=== PATIENT | male | born 1970 | race Caucasian/White ===

== ENCOUNTER 2020-05-30 14:15 | Emergency (ER) | payer OTHER ==
--- NOTE | 2020-05-30 14:43 | ED ---
General Adult HPI - General Chief complaint: Upper Respiratory Infection Stated complaint: COVID + Time Seen by Provider: 05/30/20 14:29 Source: patient Mode of arrival: ambulatory Limitations: no limitations - History of Present Illness Initial comments: Dictation was produced using [employer] dictation software. please excuse any grammatical, word or spelling errors. This patient was cared for during a federal and state declared state of emergenc y secondary to Covid 19 Chief Complaint: 49-year-old male past medical history of hypertension high cholesterol presents with chest congestion History of Present Illness: Or 9-year-old male he is a known positive Covid patient. He tested +1 week ago. States that his is also positive and currently admitted to the hospital for hypoxic respiratory failure. Patient states that he's been symptomatically for the last 10 days. States his symptoms have been more in his throat area however over the last couple days symptoms, moved down to his upper chest. He does have a nonproductive cough. Does have low-grade temperatures at home. He doesn't feel overwhelmingly dyspneic. He feels fatigued. He decided come to the emergency department just to get checked out. The ROS documented in this emergency department record has been reviewed and confirmed by me. Those systems with pertinent positive or negative responses have been documented in the HPI. All other systems are other negative and/or noncontributory. PHYSICAL EXAM: General Impression: Alert and oriented x3, not in acute distress HEENT: Normocephalic atraumatic, extra-ocular movements intact, pupils equal and reactive to light bilaterally, mucous membranes moist. Cardiovascular: Heart regular rate and rhythm Chest: Able to complete full sentences, no retractions, no tachypnea Abdomen: abdomen soft, non-tender, non-distended, no organomegaly Musculoskeletal: Pulses present and equal in all extremities, no peripheral edema Motor: no focal deficits noted Neurological: CN II-XII grossly intact, no focal motor or sensory deficits noted Skin: Intact with no visualized rashes Psych: Normal affect and mood ED course: 49-year-old male with Covid 19 +1 week ago. He's been symptomatic for 10 days. All signs upon arrival shows heart rate of 107, rest of vital signs within acceptable limits. He does not have any pain complaints. He does feel some congestion in his upper anterior chest. Laboratory evaluation obtained. CBC, coag panel unremarkable. D-dimer 0.67. Metabolic panel is negative. CRP is 35.2. Chest x-ray is nonacute. CT angio of the chest was obtained because of elevated d-dimer. CTA shows multifocal groundglass opacity. Patient observed in emergency department for 2-1/2 hours with no acute events. Patient reevaluated at bedside and is stable for discharge. He is not hypoxic. Patient be discharged. Patient has a pulse oximeter at home a is given return precautions. Patient is agreeable at discharge. EKG interpretation: Ventricular rate 100, normal sinus rhythm,. 162, QRS 96, QTC 451. No AK prolongation, no QTC prolongation, no ST or T-wave changes noted. No old EKG for comparison. Overall, this EKG is unremarkable - Related Data Allergies Allergy/AdvReac Type Severity Reaction Status Date / Time No Known Allergies Allergy Verified 05/30/20 14:22 Review of Systems ROS Statement: Those systems with pertinent positive or pertinent negative responses have been documented in the HPI. ROS Other: All systems not noted in ROS Statement are negative. Past Medical History Past Medical History: Hypertension History of Any Multi-Drug Resistant Organisms: None Reported Past Surgical History: Hernia Repair, Tonsillectomy Additional Past Surgical History / Comment(s): nose surgery Smoking Status: Light tobacco smoker Past Alcohol Use History: None Reported Past Drug Use History: None Reported General Exam Limitations: no limitations Course Vital Signs 05/30/20 05/30/20 14:18 15:30 Temperature 98.9 F Pulse Rate 107 H 93 Respiratory 20 20 Rate Blood Pressure 154/95 124/101 O2 Sat by Pulse 97 96 Oximetry Medical Decision Making - Lab Data Result diagrams: 05/30/20 14:22 05/30/20 14:22 Lab Results 05/30/20 05/30/20 05/30/20 Range/Units 14:22 14:22 14:22 WBC 6.8 (3.8-10.6) k/uL RBC 5.07 (4.30-5.90) m/uL Hgb 15.2 (13.0-17.5) gm/dL Hct 44.6 (39.0-53.0) % MCV 88.0 (80.0-100.0) fL MCH 30.0 (25.0-35.0) pg MCHC 34.2 (31.0-37.0) g/dL RDW 12.8 (11.5-15.5) % Plt Count 222 (150-450) k/uL Neutrophils % 71 % Lymphocytes % 21 % Monocytes % 5 % Eosinophils % 1 % Basophils % 1 % Neutrophils # 4.9 (1.3-7.7) k/uL Lymphocytes # 1.4 (1.0-4.8) k/uL Monocytes # 0.4 (0-1.0) k/uL Eosinophils # 0.1 (0-0.7) k/uL Basophils # 0.1 (0-0.2) k/uL PT 9.6 (9.0-12.0) sec INR 0.9 (<1.2) APTT 22.4 (22.0-30.0) sec D-Dimer 0.67 H (<0.60) mg/L FEU Sodium 135 L (137-145) mmol/L Potassium 3.5 (3.5-5.1) mmol/L Chloride 100 (98-107) mmol/L Carbon Dioxide 24 (22-30) mmol/L Anion Gap 11 mmol/L BUN 16 (9-20) mg/dL Creatinine 0.97 (0.66-1.25) mg/dL Est GFR (CKD-EPI)AfAm >90 (>60 ml/min/1.73 sqM) Est GFR (CKD-EPI)NonAf >90 (>60 ml/min/1.73 sqM) Glucose 132 H (74-99) mg/dL Plasma Lactic Acid Cuong (0.7-2.0) mmol/L Calcium 9.4 (8.4-10.2) mg/dL Magnesium 2.1 (1.6-2.3) mg/dL Total Bilirubin 0.9 (0.2-1.3) mg/dL AST 46 (17-59) U/L ALT 43 (4-49) U/L Alkaline Phosphatase 100 (38-126) U/L Lactate Dehydrogenase 560 (313-618) U/L C-Reactive Protein 35.2 H (<10.0) mg/L Total Protein 7.4 (6.3-8.2) g/dL Albumin 4.4 (3.5-5.0) g/dL 05/30/20 Range/Units 14:22 WBC (3.8-10.6) k/uL RBC (4.30-5.90) m/uL Hgb (13.0-17.5) gm/dL Hct (39.0-53.0) % MCV (80.0-100.0) fL MCH (25.0-35.0) pg MCHC (31.0-37.0) g/dL RDW (11.5-15.5) % Plt Count (150-450) k/uL Neutrophils % % Lymphocytes % % Monocytes % % Eosinophils % % Basophils % % Neutrophils # (1.3-7.7) k/uL Lymphocytes # (1.0-4.8) k/uL Monocytes # (0-1.0) k/uL Eosinophils # (0-0.7) k/uL Basophils # (0-0.2) k/uL PT (9.0-12.0) sec INR (<1.2) APTT (22.0-30.0) sec D-Dimer (<0.60) mg/L FEU Sodium (137-145) mmol/L Potassium (3.5-5.1) mmol/L Chloride (98-107) mmol/L Carbon Dioxide (22-30) mmol/L Anion Gap mmol/L BUN (9-20) mg/dL Creatinine (0.66-1.25) mg/dL Est GFR (CKD-EPI)AfAm (>60 ml/min/1.73 sqM) Est GFR (CKD-EPI)NonAf (>60 ml/min/1.73 sqM) Glucose (74-99) mg/dL Plasma Lactic Acid Cuong 1.3 (0.7-2.0) mmol/L Calcium (8.4-10.2) mg/dL Magnesium (1.6-2.3) mg/dL Total Bilirubin (0.2-1.3) mg/dL AST (17-59) U/L ALT (4-49) U/L Alkaline Phosphatase (38-126) U/L Lactate Dehydrogenase (313-618) U/L C-Reactive Protein (<10.0) mg/L Total Protein (6.3-8.2) g/dL Albumin (3.5-5.0) g/dL Disposition Clinical Impression: COVID-19 Disposition: HOME SELF-CARE Condition: Good Instructions (If sedation given, give patient instructions): Upper Respiratory Infection (ED) Is patient prescribed a controlled substance at d/c from ED?: No Referrals: Abrahan Balderas DO [Primary Care Provider] - 1-2 days Time of Disposition: 16:38
[2020-05-30 15:05] LABS: Basophils # (A) 0.1 k/uL (0-0.2); Basophils % (A) 1 %; Eosinophils # (A) 0.1 k/uL (0-0.7); Eosinophils % (A) 1 %; HCT 44.6 % (39.0-53.0); HGB 15.2 gm/dL (13.0-17.5); Lymphocytes # (A) 1.4 k/uL (1.0-4.8); Lymphocytes % (A) 21 %; MCHC 34.2 g/dL (31.0-37.0); Mean Platelet Volume 7.3; Monocytes # (A) 0.4 k/uL (0-1.0); Monocytes % (A) 5 %; Neutrophils # (A) 4.9 k/uL (1.3-7.7); Neutrophils % (A) 71 %; Platelet Count 222 k/uL (150-450); RBC 5.07 m/uL (4.30-5.90); RDW 12.8 % (11.5-15.5); WBC 6.8 k/uL (3.8-10.6)
[2020-05-30 15:17] LABS: Carbon Dioxide 24 mmol/L (22-30); Chloride 100 mmol/L (98-107); Glucose 132 mg/dL (74-99); Potassium 3.5 mmol/L (3.5-5.1); Sodium 135 mmol/L (137-145)
[2020-05-30 15:18] LABS: ALT 43 U/L (4-49); AST 46 U/L (17-59); African American GFR (CKD) >90 (>60 ml/min/1.73 sqM); Albumin 4.4 g/dL (3.5-5.0); Alkaline Phosphatase 100 U/L (38-126); Anion Gap 11 mmol/L; Blood Urea Nitrogen 16 mg/dL (9-20); C Reactive Protein 35.2 mg/L (<10.0); Calcium 9.4 mg/dL (8.4-10.2); LDH 560 U/L (313-618); Magnesium 2.1 mg/dL (1.6-2.3); Non-African American GFR(CKD) >90 (>60 ml/min/1.73 sqM); Total Bilirubin 0.9 mg/dL (0.2-1.3); Total Protein 7.4 g/dL (6.3-8.2)
[2020-05-30 15:19] LABS: INR 0.9 (<1.2); Partial Thromboplastin Time 22.4 sec (22.0-30.0); Prothrombin Time 9.6 sec (9.0-12.0)
[2020-05-30 15:31] LABS: D-Dimer 0.67 mg/L FEU (<0.60)
--- NOTE | 2020-05-30 15:33 | XR ---
EXAMINATION TYPE: XR chest 1V portable DATE OF EXAM: 05/30/2020 CLINICAL HISTORY: Suspected Covid 19 pneumonia TECHNIQUE: Upright portable view of the chest obtained COMPARISON: None FINDINGS: Low lung volumes accentuated the cardiac silhouette. Significant overlying soft tissue justin e hazy air space opacities difficult to exclude. There is no focal consolidation. No pleural effusion . No pneumothorax. No displaced osseous fracture. IMPRESSION: Low lung volumes and overlapping soft tissue somewhat limited examination. No focal airsp hans opacity.
--- NOTE | 2020-05-30 16:33 | CT ---
EXAMINATION TYPE: CT angio chest DATE OF EXAM: 05/30/2020 4:22 PM COMPARISON: Chest x-ray earlier today HISTORY: Elevated D-dimer CT DLP: 969.4 mGycm Automated exposure control for dose reduction was used. CONTRAST: CTA scan of the thorax is performed without and with IV Contrast, patient injected with 100 ml mL of Isovue 370, pulmonary embolism protocol. . FINDINGS: Suboptimal study as patient has difficulty holding breath. LUNGS: Low lung volumes redemonstrated. Focal posterior right upper lobe consolidation. Some addition al scattered foci of groundglass opacity seen throughout the mid to lower lungs bilaterally. For refe rence area anterior left lower lobe axial image 1 and subcentimeter focus right middle lobe axial chelle ge 76 nodular in configuration. Additional 1 cm right mid basilar lung nodule or nodular ground glass opacity axial image 82. No pleural effusion or pneumothorax seen bilaterally. Peripheral focal groun dglass opacities in the left upper lobe near axial image 63 noted. MEDIASTINUM: There is suboptimal study with heterogeneity and near equal contrast opacification of r ight and left heart systems but no convincing CT evidence for acute pulmonary embolism. There is abn ormal right hilar adenopathy extending to the infrahilar level. Few prominent paratracheal and subcar inal lymph nodes. No cardiomegaly or pericardial effusion is seen. OTHER: Scoliotic curvature. IMPRESSION: 1. Suboptimal study without convincing CT evidence for significant acute pulmonary embolism. 2. Low lung volumes with multifocal areas of groundglass opacity bilaterally, some peripheral involve ment noted, correlate for COVID 19 infection. Other etiologies not excluded. Right hilar adenopathy n oted presumed postinflammatory or infectious. Consider follow-up.
[2020-05-30 17:14] VITALS: BP 126/85; PULSE 89; RESP 18; TEMP 98.8
[2020-05-31 00:38] LABS: Ferritin 211.7 ng/mL (22.0-322.0)
== END 2020-05-30 17:14 | disposition home or self-care (01) ==
LOC: EC 14:15
DX: U07.1 COVID-19 (principal); R79.89 Other specified abnormal findings of blood chemistry; R91.8 Other nonspecific abnormal finding of lung field; F17.210 Nicotine dependence, cigarettes, uncomplicated
CPT/HCPCS: 36415; 71045; 71275; 80053; 82728; 83605; 83615; 83735; 84145; 85025; 85379; 85610; 85730; 86140; 87040; 93005; 99283

== ENCOUNTER → 2021-07-09 | Outpatient (CLI) | payer OTHER ==
--- NOTE | 2021-07-09 15:48 | XR ---
EXAMINATION TYPE: XR cervical spine comp DATE OF EXAM: 07/09/2021 COMPARISON: NONE HISTORY: Pain TECHNIQUE: Four views are submitted. FINDINGS: The odontoid is intact. There are no compression deformities. The prevertebral soft tissue structur es are within normal limits. IMPRESSION: 1. No acute process. If concern for disc herniation correlate with MRI.
== END | disposition home or self-care (01) ==
LOC: RADXRYALE 15:29
PROVIDERS: ATTEND Physician Assistant
DX: M54.2 Cervicalgia (principal)
CPT/HCPCS: 72050

== ENCOUNTER → 2021-08-29 | Outpatient (CLI) | payer OTHER ==
--- NOTE | 2021-08-29 09:07 | XR ---
EXAMINATION TYPE: XR chest 2V DATE OF EXAM: 08/29/2021 COMPARISON: 05/30/2000 TECHNIQUE: PA and lateral views submitted. HISTORY: Preop FINDINGS: The lungs are clear and there is no pneumothorax, pleural effusion, or focal pneumonia. Mild cardio megaly stable. Biapical pleural thickening hypertrophic change of the spine and arthropathy of the sh oulders IMPRESSION: 1. No acute process.
[2021-08-29 09:10] LABS: Basophils % (A) 0 %; Eosinophils # (A) 0.1 k/uL (0-0.7); Eosinophils % (A) 1 %; HCT 41.6 % (39.0-53.0); HGB 14.3 gm/dL (13.0-17.5); Lymphocytes # (A) 2.5 k/uL (1.0-4.8); Lymphocytes % (A) 33 %; MCH 30.8 pg (25.0-35.0); MCHC 34.3 g/dL (31.0-37.0); MCV 89.7 fL (80.0-100.0); Mean Platelet Volume 7.5; Monocytes # (A) 0.4 k/uL (0-1.0); Monocytes % (A) 5 %; Neutrophils # (A) 4.2 k/uL (1.3-7.7); Neutrophils % (A) 56 %; Platelet Count 235 k/uL (150-450); RBC 4.63 m/uL (4.30-5.90); RDW 13.5 % (11.5-15.5); WBC 7.5 k/uL (3.8-10.6)
[2021-08-29 09:34] LABS: ALT 44 U/L (4-49); AST 43 U/L (17-59); African American GFR (CKD) >90 (>60 ml/min/1.73 sqM); Albumin 4.4 g/dL (3.5-5.0); Alkaline Phosphatase 80 U/L (38-126); Anion Gap 9 mmol/L; Blood Urea Nitrogen 14 mg/dL (9-20); Calcium 9.5 mg/dL (8.4-10.2); Carbon Dioxide 26 mmol/L (22-30); Chloride 103 mmol/L (98-107); Glucose 106 mg/dL (74-99); Non-African American GFR(CKD) >90 (>60 ml/min/1.73 sqM); Potassium 4.1 mmol/L (3.5-5.1); Sodium 138 mmol/L (137-145); Total Bilirubin 0.7 mg/dL (0.2-1.3); Total Protein 7.5 g/dL (6.3-8.2)
[2021-08-29 10:16] LABS: INR 0.9 (<1.2); Partial Thromboplastin Time 23.9 sec (22.0-30.0); Prothrombin Time 9.8 sec (9.0-12.0)
[2021-08-29 11:13] LABS: Appearance,Urine Clear (Clear); Bilirubin,Urine Negative (Negative); Blood,Urine Negative (Negative); Color,Urine Yellow; Glucose,Urine (UA) Negative (Negative); Ketones,Urine Negative (Negative); Leukocyte Esterase,Urine Negative (Negative); Nitrite,Urine Negative (Negative); PH, Urine 6.5 (5.0-8.0); Protein,Urine Negative (Negative); Specific Gravity,Urine 1.018 (1.001-1.035); Urobilinogen,Urine <2.0 mg/dL (<2.0)
== END | disposition home or self-care (01) ==
LOC: LABPAT 07:35
PROVIDERS: ATTEND Orthopaedic Surgery Orthopaedic Surgery of the Spine
DX: Z01.818 Encounter for other preprocedural examination (principal); M50.223 Other cervical disc displacement at C6-C7 level
CPT/HCPCS: 71046; 80053; 81003; 85025; 85610; 85730

== ENCOUNTER 2021-09-05 07:53 | Day surgery (SDC) | payer OTHER ==
[2021-08-28 11:22] VITALS: BMI 48.1
[~2021-09-05 07:53] MED LIST: DEXAMETHASONE SOD PHOSPHATE 4 MG/ML 1 ML VIAL IV ONE; LACTATED RINGERS 1,000 ML IV SCH; LIDOCAINE 1% (10MG/ML) FOR IV START INTRADERMA PRN; ONDANSETRON 4 MG/2 ML VIAL IVP ONE; ceFAZolin 1,000 MG in SODIUM CHLORIDE 0.9% IRRIGATIO 1,000 ML IRRIGATION PRN; ceFAZolin 3 GM in SODIUM CHLORIDE 0.9% 100 ML IVPB PRN
[2021-09-05] MEDS ORDERED: LACTATED RINGERS 1,000 ML IV ONE ×2 (08:29→11:53)
[2021-09-05] MEDS ORDERED: MIDAZOLAM 2 MG/2 ML VIAL IVP ONE (09:01)
[2021-09-05] MEDS ORDERED: GLYCOPYRROLATE 0.2 MG/ML 2 ML VIAL ONE (09:38)
[2021-09-05] MEDS ORDERED: ePHEDrine 50 MG/ML 1 ML AMP ONE (09:38)
[2021-09-05] MEDS ORDERED: NEOSTIGMINE 1 MG/ML 10 ML VIAL ONE (09:38)
[2021-09-05] MEDS ORDERED: ROCURONIUM 10 MG/ML (5 ML VIAL) IV ONE (09:38)
[2021-09-05] MEDS ORDERED: fentaNYL (PF) 50 MCG/ML 2 ML AMP ONE (09:38)
[2021-09-05] MEDS ORDERED: SUCCINYLCHOLINE CHLORIDE VIAL 200 MG/10 ML VIAL IV ONE (09:38)
[2021-09-05] MEDS ORDERED: LIDOCAINE 1% INJ 10MG/ML (20 ML MDV) ONE (09:38)
[2021-09-05] MEDS ORDERED: PROPOFOL 10 MG/ML 20 ML VIAL IV ONE (09:38)
[2021-09-05] MEDS ORDERED: DEXAMETHASONE SOD PHOSPHATE 10 MG/ML 1 ML VIAL ONE (09:38)
[2021-09-05] MEDS ORDERED: PHENYLEPHRINE-0.9% NACL SYG 1,000 MCG/10 ML SYRINGE ONE (09:38)
[2021-09-05] MEDS ORDERED: BUPIVACAIN-EPI 0.25%-1:200,000 30 ML VIAL SQ ONE (10:14)
[2021-09-05] MEDS ORDERED: THROMBIN (BOVINE) 5,000 UNIT VIAL MISCELLANE ONE (11:32)
[2021-09-05] MEDS ORDERED: GELATIN SPONGE,ABSORB (SMALL) 1 EACH SPONGE MISCELLANE ONE (11:32)
[2021-09-05] MEDS ORDERED: HYDROmorphone 1 MG/ML 1 ML SYRINGE IVP PRN (11:57)
[2021-09-05] MEDS ORDERED: BENZOCAINE/MENTHOL LOZENG 1 EACH LOZENGE MUCOUS MEM PRN (11:57)
[2021-09-05] MEDS ORDERED: HYDROcodone/APAP 5-325MG 1 EACH TAB PO PRN (11:57)
[2021-09-05] MEDS ORDERED: CYCLOBENZAPRINE 10 MG TAB PO PRN (11:58)
[2021-09-05] MEDS ORDERED: ONDANSETRON 4 MG/2 ML VIAL IVP PRN (11:58)
[2021-09-05] MEDS ORDERED: ZOLPIDEM 10 MG TAB PO PRN (11:59)
[2021-09-05] MEDS ORDERED: BACLOFEN 10 MG TAB PO PRN (11:59)
[2021-09-05] MEDS ORDERED: SODIUM CHLORIDE 0.9% 1,000 ML IV SCH (12:00)
--- NOTE | 2021-09-05 12:06 | P.OP ---
Date of Procedure: 09/05/21 Preoperative Diagnosis: Herniated nucleus pulposis C6 7, right upper extremity radiculopathy, cervical stenosis C6 7, degenerative disc disease, right upper extremity weakness Postoperative Diagnosis: Same Anesthesia: GETA Pathology: none sent Condition: stable Description of Procedure: BRIEF OPERATIVE NOTE Preoperative Diagnosis:Herniated nucleus pulposis C6 7, right upper extremity radiculopathy, cervical stenosis C6 7, degenerative disc disease, right upper extremity weakness Postoperative Diagnosis:Herniated nucleus pulposis C6 7, right upper extremity radiculopathy, cervical stenosis C6 7, degenerative disc disease, right upper extremity weakness, Increased time and difficulty with procedure given by patient body habitus Procedure: Anterior cervical decompression with discectomy and fusion C6 7 Placement of interbody graft C6 7 Application of anterior cervical plate C6 7 Increased difficulty of the case given the patient's body habitus including dissection imaging positioning Surgeon: Dr. Kelly Laboratory Apparatus Glass Blower: Dwain Lee is present throughout the entire the case persistence during positioning, dissection, exposure, visualization, and all crucial elements of the case as well as closure. Anesthesia: General anesthesia Estimated blood loss: Approximately 50 mL Complications: None apparent Components implanted: K2M Carney anterior cervical plate system with 4 screws and Vikos interbody allograft bone graft Disposition: To recovery room in good stable condition. OPERATIVE INDICATIONS The patient has had severe issues in their neck and upper extremities with significant pain distally at his right upper extremity with weakness causing significant disuse and decrease activity. His found have a large disc hernia tion at C6 7 which quickly well with his neck and his upper extremity symptoms as well as weakness. He was not having any benefit despite conservative care and I felt that he could have good benefit with surgical intervention The patient has been through conservative treatment. We discussed various treatment options including surgery, and the patient wishes to proceed with surgery We discussed the risk, patient's alternatives and benefits of surgery including but not limited to, risk of bleeding risk of infection, risk of need for further surgery, risk of decreased, loss of motion, muscle function, malunion nonunion, hardware failure, nerve damage, paralysis, heart attack, and . OPERATIVE SUMMARY After discussing all the risks, patient alternatives and benefits at length, the patient elected to proceed with surgical intervention, signed informed consent, and presented for their procedure. The patient was seen and examined in the preoperative holding area and the surgical site was marked. The patient was given antibiotics and brought to the operating room. The patient was positioned on the operating room table in a supine position being careful to pad any bony prominences and pressure points. The patient was sedated and intubated by anesthesia in standard fashion. Once the airway and C- spine were stabilized the patient's arms were padded and tucked at her side, wit h her shoulders gently taped. The head was placed in a donut pad with the neck in good neutral alignment and position. We were careful to maintain the patient's cervical spine and good neutral alignment and position throughout. The patient was prepped and draped in a normal standard fashion. An appropriate timeout and keystone protocol performed. We were able to proceed with the surgery. The local wound area was infiltrated with local anesthetic. An incision was made transversely approximately 2-1/2 cm over the appropriate levels at C6 7. Dissection was taken down subcutaneously to the level of the platysma which was split in line with its fibers. Dissection was taken with a carotid approach, with the trachea and esophagus medial and the carotid sheath laterally. We dissected down to the anterior surface of the vertebral bodies. Intraoperative x-ray was taken. It was very difficult to get good imaging intraoperatively. We had to take multiple images with a portable x-ray machine. We did multiple angles well pulling on the patient's arms to get some view of the C67 level. I was able to visualize my metallic marker at that I was holding at the level of C6 which showed a marker at the appropriate level. With the appropriate level confirmed, we were able to proceed with discectomy at the appropriate levels of C6 7. All of the operative levels were exposed appropri ately. The patient had all their twitches back, and there was no evidence of recurrent laryngeal issue. The wound was copiously irrigated and suctioned dry as had been done periodically throughout the case. At the appropriate level of C6 7, I established an annulotomy with an 11 blade scalpel. A discectomy was performed with a combination of pituitary rongeurs, curettes, a high-speed bur, and Kerrison rongeurs. The posterior longitudinal ligament was taken down as were any posterior osteophytes. There was evidence of significant disc herniation to the right side with some extrusion of the disc material which was able to be removed. This gave good central and bilateral foraminal decompression. There is no evidence of any dural tear or leak. The endplates were prepared with a high-speed bur. With the endplates in good parallel position, I was able to size for the appropriate size interbody graft. The wound was irrigated and suctioned dry the graft was prepared and malleted into position. It had good alignment and position with the anterior surface flush with the anterior surface of the vertebral bodies of C6 7 With the grafts intact, I was able to measure and contour and appropriate sized plate. The plate was positioned at the midline over the appropriate levels. Screw holes were established with a hand drill and drill guide. Screws were placed in good alignment and position with excellent bony purchase. They were seated under the locking device. The construct was checked and found to be stable. Intraoperative x-ray was again very difficult to get positive c onfirmation of the plate at the appropriate levels but I felt that we had excellent evidence of the plate at C6 7 with screws in good alignment and good position. of the implants at the appropriate levels. There was no evidence of any dural tear or leak. Good hemostasis was maintained. The wound was copiously irrigated and suctioned dry as had been done periodically throughout the case. The platysma was closed with absorbable suture. The subcutaneous tissue was closed. The subcuticular tissue was closed with absorbable suture. The wound was cleaned and dried and dressed appropriately. A soft cervical collar was placed appropriately. The patient was woken up by anesthesia, extubated, transferred back gently to their hospital bed and brought to the recovery room in good stable condition. The patient will be admitted to the hospital for appropriate postoperative care, medical management and monitoring. We will continue to follow them closely about the postoperative course.
[2021-09-05 12:17] VITALS: RESP 16; TEMP 96.9
[2021-09-05] MEDS: HYDROmorphone 0.5 MG/0.5 ML SYRINGE IVP PRN ×2 (12:18→12:30)
--- NOTE | 2021-09-05 12:32 | XR ---
Cervical spine HISTORY: Hardware placement lateral view of the cervical spine submitted on 2 images correlated to prior exam same date earlier t marilyn. Lower cervical spine is not well seen. Metallic plate is present anterior to the lower cervical verte bral bodies. Alignment is not well seen. IMPRESSION: Limited orthopedic follow-up
--- NOTE | 2021-09-05 12:33 | XR ---
Cervical spine HISTORY: Hardware placement Lateral cervical spine is submitted and 2 images There is an endotracheal tube in place. Metallic probe is present near the C6-7 disc space level. IMPRESSION: Orthopedic localization is limited
[2021-09-05 12:55] VITALS: BP 121/69
[2021-09-05 13:20] VITALS: PULSE 74
[2021-09-05] MEDS ORDERED: ceFAZolin 3 GM in SODIUM CHLORIDE 0.9% 100 ML IVPB SCH (16:00)
[2021-09-05] MEDS ORDERED: HYDROcodone/APAP 5-325MG 1 EACH TAB PO SCH (16:00)
[2021-09-06] MEDS ORDERED: LISINOPRIL-HCTZ 10-12.5 MG 1 EACH TAB PO SCH (09:00)
[2021-09-06] MEDS ORDERED: MULTIVITAMINS, THERA 1 EACH TAB PO SCH (09:00)
[2021-09-06] MEDS ORDERED: CHOLECALCIFEROL 25 MCG (1000 IU) TABLET PO SCH (09:00)
[2021-09-06] MEDS ORDERED: ATORVASTATIN 40 MG TAB PO SCH (09:00)
== END 2021-09-05 13:45 | disposition home or self-care (01) ==
LOC: OR 07:53
PROVIDERS: ATTEND Orthopaedic Surgery Orthopaedic Surgery of the Spine
DX: M50.123 Cervical disc disorder at C6-C7 level with radiculopathy (principal); M50.323 Other cervical disc degeneration at C6-C7 level; Z20.822 Contact with and (suspected) exposure to COVID-19
CPT/HCPCS: 22551; 86900; 86901; 86850; 87635; 72020; C1713; C1762; J2250; J0330; J1100; J2710; J0690 ×2; J2405; J2001; J3010; J2370; J2704; J1170

== ENCOUNTER 2024-07-27 07:16 | Day surgery (SDC) | payer OTHER ==
[2024-07-26 11:26] VITALS: BMI 46.0
[2024-07-27] MEDS ORDERED: LIDOCAINE 1% (10MG/ML) FOR IV START INTRADERMA PRN (07:26)
[2024-07-27 07:41] VITALS: TEMP 96
[2024-07-27] MEDS: LACTATED RINGERS 1,000 ML IV SCH (07:47)
[2024-07-27] MEDS: IV FLUID CONTINUATION 1,000 ML IV ONE (07:47)
[2024-07-27 07:51] LABS: Glucose,Whole Blood 108 mg/dL (70-110)
[2024-07-27] MEDS ORDERED: PROPOFOL 10 MG/ML 20 ML VIAL IV ONE (08:51)
--- NOTE | 2024-07-27 09:12 | P.PCN ---
Date of Procedure: 07/27/24 Procedure(s) Performed: BRIEF HISTORY: Patient is a 54-year-old pleasant white male scheduled for an elective colonoscopy as a part of screening for colon cancer. PROCEDURE PERFORMED: Colonoscopy snare polypectomy. PREOPERATIVE DIAGNOSIS: Screening for colon cancer. IV sedation per Anesthesia. PROCEDURE: After informed consent was obtained, the patient, was brought into the endoscopy unit. IV sedation was administered by Anesthesia under continuous monitoring. Digital rectal examination was normal. Initially the Olympus CF-160 flexible video colonoscope was then inserted in the rectum, gradually advanced into the cecum without any difficulty. Careful examination was performed as the scope was gradually being withdrawn. Ileocecal valve and the appendiceal orifice were visualized and appeared normal. Prep was excellent. Mucosa of the cecum, ascending colon, transverse colon, descending colon, sigmoid colon, appeared normal. The rectosigmoid colon at 80 cm from the anal verge there was a 2 cm thick pedunculated polyp removed b18 snare polypectomy. In the rectum there was a 3 mm polyp that was removed by snare polypectomy. Retroflexion was performed in the rectum and internal hemorrhoids s were seen. The patient tolerated the procedure well. IMPRESSION: 2 cm thick pedunculated rectosigmoid polyp status post snare polypectomy 3 mm rectal polyp status post cold snare polypectomy Small internal hemorrhoids RECOMMENDATIONS: Findings of this examination were discussed with the patient as well as his family. He was advised to follow-up with the biopsy results. If the biopsy reveals adenoma he can have repeat colonoscopy in 3 years. \
[2024-07-27 09:17] VITALS: RESP 18
[2024-07-27 09:32] VITALS: BP 138/81; PULSE 74
== END 2024-07-27 09:50 | disposition home or self-care (01) ==
LOC: ORWHC2ENDO 07:16
PROVIDERS: ATTEND Internal Medicine Gastroenterology
DX: Z12.11 Encounter for screening for malignant neoplasm of colon (principal); D12.7 Benign neoplasm of rectosigmoid junction; K64.8 Other hemorrhoids; I10 Essential (primary) hypertension; E78.5 Hyperlipidemia, unspecified; F17.200 Nicotine dependence, unspecified, uncomplicated; Z79.02 Long term (current) use of antithrombotics/antiplatelets; Z79.899 Other long term (current) drug therapy
CPT/HCPCS: 88305; 45385; J2704